=== PATIENT | female | born 1960 | race Caucasian/White ===

== ENCOUNTER 2017-09-20 12:23 | Outpatient (CLI) | payer BC | END 2017-09-20 12:24 | disposition home or self-care (01) | LOC: BICMAMMO 12:23 | PROVIDERS: ATTEND Specialist | DX: Z12.31 Encounter for screening mammogram for malignant neoplasm of breast (principal) | CPT/HCPCS: 77063; 77067 ==

== ENCOUNTER 2018-08-11 13:05 | Outpatient (CLI) | payer BC ==
--- NOTE | 2018-08-11 14:03 | RAD ---
PA AND LATERAL CHEST: Date: 08/11/18 INDICATION: History of wheezing. COMPARISON: None. FINDINGS: Lungs are clear. Heart size normal. There are mild vascular calcifications involving the aortic arch. No pleural effusion or pneumothorax evident. No acute osseous abnormality is noted. IMPRESSION: No acute cardiopulmonary abnormality. POS: TABITHAH
== END 2018-08-11 13:06 | disposition home or self-care (01) ==
LOC: RAD-FRANK 13:05
PROVIDERS: ATTEND Nurse Practitioner Family
DX: R06.2 Wheezing (principal); R05 Cough; R68.89 Other general symptoms and signs; F17.200 Nicotine dependence, unspecified, uncomplicated
CPT/HCPCS: 71046

== ENCOUNTER 2018-09-24 14:12 | Outpatient (CLI) | payer BC ==
--- NOTE | 2018-09-24 15:02 | MMO ---
Bilateral MAMMO Bilat Screen [facility]. CLINICAL HISTORY: Patient is 57 years old and is seen for screening. The patient has no family history of breast cancer. The patient has no personal history of cancer. VIEWS: The views performed were: bilateral craniocaudal with tomosynthesis and bilateral mediolateral oblique with tomosynthesis. FILMS COMPARED: The present examination has been compared to prior imaging studies performed at [facility] on 03/11/1998, 03/21/1999, 06/28/2005, 02/23/2009, 08/03/2010, 03/13/2013, 06/22/2014, 08/01/2015, 08/02/2016 and 09/20/2017. MAMMOGRAM FINDINGS: There are scattered fibroglandular densities. There is a single stable benign appearing calcification seen in the left breast. There are no suspicious masses, suspicious calcifications, or new areas of architectural distortion. IMPRESSION: THERE IS NO MAMMOGRAPHIC EVIDENCE OF MALIGNANCY. A ROUTINE FOLLOW-UP MAMMOGRAM IN 1 YEAR IS RECOMMENDED. THE RESULTS OF THIS EXAM WERE SENT TO THE PATIENT. ACR BI-RADS Category 2 - Benign finding MAMMOGRAPHY NOTE: 1. A negative mammogram report should not delay a biopsy if a dominant of clinically suspicious mass is present. 2. Approximately 10% to 15% of breast cancers are not detected by mammography. 3. Adenosis and dense breasts may obscure an underlying neoplasm.
== END 2018-09-24 14:13 | disposition home or self-care (01) ==
LOC: BICMAMMO 14:12
PROVIDERS: ATTEND Specialist
DX: Z12.31 Encounter for screening mammogram for malignant neoplasm of breast (principal); R92.1 Mammographic calcification found on diagnostic imaging of breast
CPT/HCPCS: 77063; 77067

== ENCOUNTER 2023-02-25 14:21 | Outpatient (CLI) | payer BC | END 2023-02-25 14:22 | disposition home or self-care (01) | LOC: BICMAMMO 14:21 | PROVIDERS: ATTEND Specialist | DX: Z12.31 Encounter for screening mammogram for malignant neoplasm of breast (principal); M85.9 Disorder of bone density and structure, unspecified | CPT/HCPCS: 77063; 77067; 77080 ==